=== PATIENT | female | born 1985 | race African-American/Black ===

== ENCOUNTER 2016-06-20 10:07 | Emergency (ER) | payer OTHER ==
[~2016-06-20] VITALS: Ht 167.6 cm; Wt 81.7 kg
[~2016-06-20 10:07] MED LIST: BACTRIM DS TAB1 EACH PO; DIFLUCAN150 MG PO; DOXYCYCLINE 10100 MG PO; IBUPROFEN 600600 M1 PO; LO-OVRAL-281 EACH; NOHOMEMEDICATIONS; NORCO 5-325 TA1 EACH PO; PERCOCET 5-3251 EACH PO; PYRIDIUM200 MG PO; ZOFRAN ODT4 MG PO
[2016-06-20 10:21] LABS: URINE BILIRUBIN NEGATIVE (Negative); URINE BLOOD NEGATIVE (Negative); URINE COLOR YELLOW; URINE GLUCOSE-RANDOM* NEGATIVE (Negative); URINE KETONES NEGATIVE (Negative); URINE LEUKOCYTES-REFLEX NEGATIVE (Negative); URINE PROTEIN (DIPSTICK) NEGATIVE (Negative); URINE SPECIFIC GRAVITY 1.025 (1.003-1.035); URINE UROBILINOGEN 0.2 E.U./dl (0.2-1.0)
[2016-06-20 10:48] LABS: ABSOLUTE NEUTROPHILS 2.7 thou/uL (1.4-8.2); BASOPHILS 0.8 % (0.0-2.0); HEMATOCRIT 40.9 % (37.0-47.0); HEMOGLOBIN 13.5 gm/dL (12.0-15.0); LYMPHOCYTES 38.4 % (24.0-44.0); MCH 26.6 pg (26.0-34.0); MCV 80.7 fL (80.0-100.0); MONOCYTES 9.2 % (1.0-8.0); PLATELET COUNT 233 thou/uL (150-400); POLYS 50.6 % (36.0-66.0); RBC 5.07 mil/uL (4.20-5.00); RDW 13.4 % (10.5-14.5); WBC 5.4 thou/uL (4.0-11.0)
[2016-06-20 10:51] LABS: MANUAL DIFF NO
[2016-06-20 11:51] LABS: CALCIUM 8.8 mg/dL (8.5-10.1); CREATININE 0.8 mg/dL (0.6-1.3)
[2016-06-20] MEDS ORDERED: ONDANSETRON HCL4 M2 PO (12:54)
[2016-06-20] MEDS ORDERED: TRINATE TABLET1 TAB PO (12:54)
[2016-06-20 13:05] VITALS: BP 118/70
[2016-06-21 14:12] LABS: CHLAMYDIA TRACHOMATIS-PCR Negative (Negative); NEISSERIA GONORRHEA-PCR Negative (Negative)
== END 2016-06-20 13:07 | disposition home or self-care (01) ==
LOC: ER 10:07
PROVIDERS: Physician Assistant
DX: O34.81 Maternal care for other abnormalities of pelvic organs, first trimester (principal); O21.9 Vomiting of pregnancy, unspecified; N83.291 Other ovarian cyst, right side; Z77.22 Contact with and (suspected) exposure to environmental tobacco smoke (acute) (chronic); Z3A.01 Less than 8 weeks gestation of pregnancy

== ENCOUNTER 2016-06-22 20:24 | Emergency (ER) | payer OTHER ==
[~2016-06-22] VITALS: Ht 167.6 cm; Wt 81.7 kg
[~2016-06-22 20:24] MED LIST changes: +ONDANSETRON HCL4 M2 PO; +TRINATE TABLET1 TAB PO
[2016-06-22 22:09] VITALS: BP 121/65
== END 2016-06-22 22:10 | disposition home or self-care (01) ==
LOC: ER 20:24
DX: O34.80 Maternal care for other abnormalities of pelvic organs, unspecified trimester (principal); N83.201 Unspecified ovarian cyst, right side; O23.599 Infection of other part of genital tract in pregnancy, unspecified trimester; N76.0 Acute vaginitis; B96.89 Other specified bacterial agents as the cause of diseases classified elsewhere; Z3A.00 Weeks of gestation of pregnancy not specified

== ENCOUNTER 2016-06-25 20:43 | Emergency (ER) | payer OTHER ==
[~2016-06-25] VITALS: Ht 162.6 cm; Wt 72.6 kg
[2016-06-25 21:43] LABS: ABSOLUTE NEUTROPHILS 3.9 thou/uL (1.4-8.2); BASOPHILS 0.9 % (0.0-2.0); EOSINOPHILS 0.9 % (0.0-3.0); HEMATOCRIT 39.1 % (37.0-47.0); HEMOGLOBIN 12.8 gm/dL (12.0-15.0); LYMPHOCYTES 39.4 % (24.0-44.0); MCH 26.6 pg (26.0-34.0); MCHC 32.6 % (28.0-37.0); MCV 81.4 fL (80.0-100.0); MONOCYTES 9.5 % (1.0-8.0); PLATELET COUNT 310 thou/uL (150-400); POLYS 49.3 % (36.0-66.0); RBC 4.81 mil/uL (4.20-5.00); RDW 13.7 % (10.5-14.5); WBC 7.9 thou/uL (4.0-11.0)
[2016-06-25 21:47] LABS: MANUAL DIFF NO
[2016-06-25 21:53] LABS: CALCIUM 9.2 mg/dL (8.5-10.1); CREATININE 0.8 mg/dL (0.6-1.3); POTASSIUM 4.2 mmol/L (3.5-5.1)
[2016-06-25 21:59] LABS: TOTAL BILIRUBIN 0.2 mg/dL (<0.1-1.0); TOTAL PROTEIN 8.4 g/dL (6.4-8.2)
[2016-06-25 23:39] VITALS: BP 119/82
[2016-06-28 13:08] LABS: CHLAMYDIA TRACHOMATIS-PCR Negative (Negative); NEISSERIA GONORRHEA-PCR Negative (Negative)
== END 2016-06-25 23:42 | disposition home or self-care (01) ==
LOC: ER 20:43
PROVIDERS: Emergency Medicine
DX: O20.0 Threatened abortion (principal); Z3A.01 Less than 8 weeks gestation of pregnancy

== ENCOUNTER 2018-10-20 19:20 | Emergency (ER) | payer OTHER ==
[~2018-10-20] VITALS: Ht 167.6 cm; Wt 86.6 kg
[2018-10-20 20:00] LABS: URINE BILIRUBIN NEGATIVE (Negative); URINE BLOOD NEGATIVE (Negative); URINE CLARITY CLEAR; URINE COLOR YELLOW; URINE GLUCOSE-RANDOM* NEGATIVE (Negative); URINE KETONES NEGATIVE (Negative); URINE LEUKOCYTES-REFLEX NEGATIVE (Negative); URINE NITRITE-REFLEX NEGATIVE (Negative); URINE PROTEIN (DIPSTICK) NEGATIVE (Negative); URINE UROBILINOGEN 0.2 E.U./dl (0.2-1.0)
[2018-10-20] MEDS ORDERED: PROMETH-CODEIN 65 ML PO (21:08)
[2018-10-20] MEDS ORDERED: DIFLUCAN150 MG PO (21:08)
[2018-10-20 21:23] VITALS: BP 114/73
== END 2018-10-20 21:23 | disposition home or self-care (01) ==
LOC: ER 19:20
PROVIDERS: Physician Assistant
DX: R09.82 Postnasal drip (principal); N89.8 Other specified noninflammatory disorders of vagina; Z77.22 Contact with and (suspected) exposure to environmental tobacco smoke (acute) (chronic)